=== PATIENT | male | born 1975 | race Caucasian/White ===

== ENCOUNTER 2017-11-04 11:31 | Emergency (ER) | payer BC ==
[2017-11-04] MEDS ORDERED: Albuterol/Ipratropium 3.0-0.5 MG/3 ML Neb Soln NEB ONE (12:48)
--- NOTE | 2017-11-04 12:55 | EDM.PDOC ---
ED HPI GENERAL MEDICAL PROBLEM - General Chief Complaint: General Stated Complaint: SICK Time Seen by Provider: 11/04/17 12:40 Source of Information: Reports: Patient History Limitations: Reports: No Limitations - History of Present Illness INITIAL COMMENTS - FREE TEXT/NARRATIVE: HISTORY AND PHYSICAL: History of present illness: [Comes to the emergency room complaining of cough, chest congestion and body aches for the past 1-1/2 weeks. His body aches of the most concerning symptoms for him. Denies earaches, sore throat and runny nose. He's had some head congestion and chest congestion. Has been taking some Advil Cold and Sinus with minimal improvement in his symptoms. Has not taken any other medications. Denies chest pain and shortness of breath. Cough has been productive for yellow and green colored sputum. He's heard wheezing and noisy breathing particularly during the night. No abdominal pain nausea or vomiting. Appetite is normal. Bowel and bladder is normal. No swelling to feet or lower legs. History of pneumonia within the last 10 years. Did not require hospitalization. States that he is otherwise healthy and well. No chronic medical conditions. Smokes one half to one pack of cigarettes per day.] Review of systems: As per history of present illness and below otherwise all systems reviewed and negative. Past medical history: As per history of present illness and as reviewed below otherwise noncontributory. Surgical history: As per history of present illness and as reviewed below otherwise noncontributory. Social history: No reported history of drug or alcohol abuse. Family history: As per history of present illness and as reviewed below otherwise noncontributory. Physical exam: HEENT: Atraumatic, normocephalic area TMs are pearly medina without erythema. Mild effusions present bilaterally. Oral mucous membranes are pink and moist no tonsillar swelling erythema or exudate. Nares are patent no drainage noted. Neck supple no lymphadenopathy., pupils reactive, negative for conjunctival pallor or scleral icterus, mucous membranes moist, throat clear, neck supple, nontender, trachea midline. Lungs: Wheezing is appreciated throughout all lung smith. No crackles or rales are appreciated. Heart: S1S2, regular. Abdomen: Soft, nondistended, nontender. No masses guarding or rebound. Pelvis: Stable nontender. Genitourinary: Deferred. Rectal: Deferred. Extremities: Atraumatic, full range of motion. Neurovascular unremarkable. Neuro: Awake, alert, oriented. Motor and sensory unremarkable throughout. Exam nonfocal. Diagnostics: [Chest x-ray, influenza swab] Therapeutics: [DuoNeb] Impression: [viral URI] Plan: [Breath sounds improved significantly following DuoNeb. Chest x-ray is clear. Influenza swabs negative. Offered patient lab work, which he declines. Discussed that his symptoms are viral in nature and recommend that he push fluids, get plenty of rest and treat symptomatically with Robitussin or Delsym, Tylenol or ibuprofen. Urged him to quit smoking. Rx given for albuterol inhaler #1 si puff q 4-6 hours prn cough/SOA/wheezing. ] Definitive disposition and diagnosis as appropriate pending reevaluation and review of above. Generalized Pain Score (Numeric/FACES): 4 - Related Data Allergies Allergy/AdvReac Type Severity Reaction Status Date / Time No Known Allergies Allergy Verified 11/04/17 11:44 Home Meds: Home Meds . [No Known Home Meds] 11/04/17 [History] Past Medical History - Past Health History Medical/Surgical History: Denies Medical/Surgical History - Infectious Disease History Infectious Disease History: Reports: Chicken Pox Social & Family History - Tobacco Use Smoking Status *Q: Current Every Day Smoker Years of Tobacco use: 20 Packs/Tins Daily: 0.5 - Caffeine Use Caffeine Use: Reports: Coffee, Soda, Tea - Recreational Drug Use Recreational Drug Use: No ED ROS GENERAL - Review of Systems Review Of Systems: ROS reveals no pertinent complaints other than HPI. ED EXAM, GENERAL - Physical Exam Exam: See Below Course - Vital Signs Last Recorded V/S: Last Vital Signs Temp 97.0 F 11/04/17 11:44 Pulse 88 11/04/17 11:44 Resp 18 11/04/17 11:44 BP 141/82 H 11/04/17 11:44 Pulse Ox 96 11/04/17 11:44 - Orders/Labs/Meds Orders: Active Orders 24 hr Category Date Time Status RT Aerosol Therapy [RC] ASDIRECTED Care 11/04/17 12:48 Active Chest 2V [CR] Stat Exams 11/04/17 12:48 Taken Meds: Medications Discontinued Medications Generic Name Dose Route Start Last Admin Trade Name Freq PRN Reason Stop Dose Admin Albuterol/Ipratropium 3 ml 11/04/17 12:48 11/04/17 12:57 Duoneb 3.0-0.5 Mg/3 Ml NEB 11/04/17 12:49 3 ml ONETIME ONE Administration Departure - Departure Time of Disposition: 13:40 Disposition: Home, Self-Care 01 Condition: Good Clinical Impression: Viral upper respiratory infection - Discharge Information Instructions: Upper Respiratory Infection, Adult, [id number] Referrals: PCP,None [Primary Care Provider] - Forms: ED Department Discharge Additional Instructions: The following information is given to patients seen in the emergency department who are being discharged to home. This information is to outline your options for follow-up care. We provide all patients seen in our emergency department with a follow-up referral. The need for follow-up, as well as the timing and circumstances, are variable depending upon the specifics of your emergency department visit. If you don't have a primary care physician on staff, we will provide you with a referral. We always advise you to contact your personal physician following an emergency department visit to inform them of the circumstance of the visit and for follow-up with them and/or the need for any referrals to a consulting specialist. The emergency department will also refer you to a specialist when appropriate. This referral assures that you have the opportunity for follow-up care with a specialist. All of these measure are taken in an effort to provide you with optimal care, which includes your follow-up. Under all circumstances we always encourage you to contact your private physician who remains a resource for coordinating your care. When calling for follow-up care, please make the office aware that this follow-up is from your recent emergency room visit. If for any reason you are refused follow-up, please contact the [facility] emergency department at and asked to speak to the emergency department charge nurse. [facility] [address] [place] [id number] Follow-up with her local primary care provider or the clinic listed above in 48- 72 hours. Take Robitussin or Delsym cough syrup as needed for cough, push fluids, use inhaler as instructed. Return to ER as needed as discussed. - My Orders Last 24 Hours: My Active Orders 11/04/17 12:48 RT Aerosol Therapy [RC] ASDIRECTED Chest 2V [CR] Stat - Assessment/Plan Last 24 Hours: My Active Orders 11/04/17 12:48 RT Aerosol Therapy [RC] ASDIRECTED Chest 2V [CR] Stat
--- NOTE | 2017-11-05 13:29 | CR ---
EXAM DATE: 11/04/17 PATIENT'S AGE: 42 Patient: TONEY MUHAMMAD Facility: [place], [place] Site . Site : [id number] Study: XRay Chest [id number] 1:21:00 PM Ordering Physician: Doctor Briceño Final Report: INDICATION: Pain. Shortness of breath. COMPARISON: None. FINDINGS: PA and lateral views of the chest were obtained. The cardiac silhouette and pulmonary vasculature are within normal limits. The lungs are clear bilaterally. IMPRESSION: No evidence of acute pulmonary disease. Dictated by Juan Macias MD @ 11/04/2017 1:25:21 PM Dictated by: Juan Macias MD @ 11/04/2017 13:25:43 (Electronic Signature) Report Signed by Proxy. [facility] HOSPITALSheri
== END 2017-11-04 13:49 | disposition home or self-care (01) ==
LOC: MW.ED 11:31
DX: J06.9 Acute upper respiratory infection, unspecified (principal); F17.210 Nicotine dependence, cigarettes, uncomplicated
CPT/HCPCS: 71046; 71046-26; 87804; 94640; 99282; 99284-25